=== PATIENT | male | born 1945 | race Caucasian/White ===

== ENCOUNTER 2022-04-01 05:49 | Emergency (ER) | payer OTHER ==
[~2022-04-01] VITALS: Ht 172.7 cm; Wt 88.0 kg
[~2022-04-01 05:49] MED LIST: DOXYCYCLINE HY100 MG PO; FLOMAX0.4 MG; LISINOPRIL20 MG; MACROBID 100 M100 MG PO; MULTI-DAY VITA1 EACH; PREDNISONE20 MG PO; VITAMIN D5000 UNIT
== END 2022-04-01 07:14 | disposition home or self-care (01) ==
LOC: ED 05:49
DX: U07.1 COVID-19 (principal); I10 Essential (primary) hypertension; Z79.899 Other long term (current) drug therapy
CPT/HCPCS: 87502; 99283; U0003

== ENCOUNTER 2024-04-05 04:02 | Emergency (ER) | payer OTHER ==
[~2024-04-05] VITALS: Ht 172.7 cm; Wt 84.1 kg
[2024-04-05] MEDS ORDERED: COZAAR25 MG PO (04:18)
[2024-04-05 04:30] LABS: BASOPHILS 0.3 % (0-2); HEMATOCRIT 42.8 % (35.0-50.0); LYMPHOCYTES 19.2 % (24-44); MCH 28.2 (27-36); MCHC 32.7 g/dl (30-36); MCV 86.2 fl (81-99); MONOCYTES 5.7 % (0-12); NEUTROPHILS 72.8 % (39-80); PLATELET COUNT 146 K/uL (140-440); RBC 4.96 M/ul (4.3-5.7)
[2024-04-05] MEDS ORDERED: LACTATED RINGER'S 1,000 ML IV ONE (04:30)
[2024-04-05 04:40] LABS: PARTIAL THROMBOPLASTIN TIME 27.3 Sec (22.9-41.3)
[2024-04-05 04:41] LABS: INR 1.23 (0.80-1.30); PROTIME 14.8 Sec (11.2-14.2)
[2024-04-05] MEDS ORDERED: ondansetron HCL 4 MG/2 ML VIAL IV ONE (04:45)
[2024-04-05 04:54] LABS: ALBUMIN 3.7 g/dL (3.4-5.0); ALBUMIN/GLOBULIN RATIO 1.23 (1.1-2.4); ANION GAP 14.3 (7-21); BILIRUBIN, TOTAL 0.6 ng/dL (0.2-1.0); BUN/CREATININE RATIO 20.4 (6.0-28.6); CALCIUM 8.3 mg/dL (8.5-10.1); CREATININE, SERUM 0.98 mg/dL (0.70-1.30); POTASSIUM 3.3 mmol/L (3.5-5.1); PROTEIN, TOTAL 6.7 g/dL (6.4-8.2); TSH, 3RD GENERATION 2.817 uIU/mL (0.358-3.740)
[2024-04-05] MEDS ORDERED: POTASSIUM CHLORIDE 10 MEQ TABCR PO ONE (05:45)
[2024-04-05 05:59] LABS: BILIRUBIN, URINE NEGATIVE (negative); BLOOD/HGB, URINE NEGATIVE (Negative); KETONE, URINE NEGATIVE (Negative); LEUK ESTERASE, URINE NEGATIVE (negative); NITRITE, URINE NEGATIVE (negative)
[2024-04-05] MEDS ORDERED: METOPROLOL TARTRATE 50 MG TAB PO ONE (06:00)
[2024-04-05 06:13] LABS: AMPHETAMINES, URINE NEGATIVE (NEGATIVE); BARBITURATES, URINE NEGATIVE (NEGATIVE); BENZODIAZEPINE, URINE NEGATIVE (NEGATIVE); BUPRENORPHINE, URINE NEGATIVE (NEGATIVE); CANNABINOID, URINE NEGATIVE (NEGATIVE); COCAINE, URINE NEGATIVE (NEGATIVE); ECSTASY, URINE NEGATIVE (NEGATIVE); FENTANYL, URINE NEGATIVE (NEGATIVE); METHADONE, URINE NEGATIVE (NEGATIVE); OPIATES, URINE NEGATIVE (NEGATIVE); OXYCODONE, URINE NEGATIVE (NEGATIVE); PHENCYCLIDINE, URINE NEGATIVE (NEGATIVE)
[2024-04-05] MEDS ORDERED: METOPROLOL TART50 MG PO (07:12)
[2024-04-05] MEDS ORDERED: K-TAB ER20 MEQ PO (07:12)
[2024-04-05] MEDS ORDERED: ELIQUIS5 MG PO (07:12)
[2024-04-05] MEDS ORDERED: APIXABAN 5 MG TAB PO ONE (07:15)
[2024-04-05 07:31] VITALS: BP 118/91
--- NOTE | 2024-04-05 14:36 | EKG ---
[facility] [address] [facility] [address] [place], [place] [address] Signed Atrial fibrillation with rapid ventricular response Abnormal ECG No previous ECGs available Confirmed by OLENA TORO MD ([id number]) on 04/05/2024 2:36:25 PM Electronically Signed By: OLENA TORO 04/05/24 1436 PATIENT NAME: KIMBERLY MARQUEZ Electrocardiogram DATE OF : 43 PHYSICIAN: OLENA TORO REPORT #: [id number] REPORT IS CONFIDENTIAL AND NOT TO BE RELEASED WITHOUT AUTHORIZATION
[2024-04-06 19:59] LABS: THYROXINE 6.04 ug/dL (4.50-11.70)
== END 2024-04-05 07:30 | disposition home or self-care (01) ==
LOC: ED 04:02
PROVIDERS: Internal Medicine
DX: I48.91 Unspecified atrial fibrillation (principal); E87.6 Hypokalemia; I10 Essential (primary) hypertension; Z79.899 Other long term (current) drug therapy
CPT/HCPCS: 36415; 70450; 70496; 70498; 71045; 80053; 80307; 81003; 83735; 83880; 84436; 84443; 84484; 85025; 85610; 85730; 93005; 93010; 99285-25; A9270; J2405; J7121; Q9967

== ENCOUNTER 2024-06-27 04:43 | Emergency (ER) | payer OTHER ==
[~2024-06-27] VITALS: Ht 172.7 cm; Wt 81.6 kg
[~2024-06-27 04:43] MED LIST changes: +COZAAR25 MG PO; +ELIQUIS5 MG PO; +K-TAB ER20 MEQ PO; +METOPROLOL TART50 MG PO
[2024-06-27] MEDS ORDERED: MECLIZINE HCL 25 MG TAB PO ONE (05:00)
[2024-06-27] MEDS ORDERED: LACTATED RINGER'S 1,000 ML IV ONE (05:15)
[2024-06-27] MEDS ORDERED: ondansetron HCL 4 MG/2 ML VIAL IV ONE ×2 (05:15→07:15)
[2024-06-27 05:27] LABS: BASOPHILS 0.5 % (0-2); EOSINOPHILS 2.7 % (0-6); HEMATOCRIT 41.7 % (35.0-50.0); HEMOGLOBIN 13.7 g/dL (12.0-18.0); MCH 28.8 (27-36); MCHC 32.8 g/dl (30-36); MCV 87.7 fl (81-99); MONOCYTES 8.4 % (0-12); NEUTROPHILS 65.4 % (39-80); PLATELET COUNT 169 K/uL (140-440); RBC 4.75 M/ul (4.3-5.7); RDW 15.2 (10.5-15.0)
[2024-06-27 05:40] LABS: ALBUMIN 3.6 g/dL (3.4-5.0); ALBUMIN/GLOBULIN RATIO 1.2 (1.1-2.4); ANION GAP 13.9 (7-21); BILIRUBIN, TOTAL 0.5 ng/dL (0.2-1.0); BUN/CREATININE RATIO 17.52 (6.0-28.6); CALCIUM 8.4 mg/dL (8.5-10.1); CREATININE, SERUM 0.97 mg/dL (0.70-1.30); PHOSPHORUS, INORGANIC 3.2 mg/dL (2.5-4.9); POTASSIUM 3.9 mmol/L (3.5-5.1); PROTEIN, TOTAL 6.6 g/dL (6.4-8.2)
[2024-06-27] MEDS ORDERED: MECLIZINE HCL25 MG PO (06:31)
[2024-06-27 07:16] LABS: BILIRUBIN, URINE NEGATIVE (negative); BLOOD/HGB, URINE NEGATIVE (Negative); KETONE, URINE NEGATIVE (Negative); LEUK ESTERASE, URINE NEGATIVE (negative); NITRITE, URINE NEGATIVE (negative)
[2024-06-27 07:42] VITALS: BP 134/115
--- NOTE | 2024-06-27 17:45 | EKG ---
[facility] [address] [facility] [place] [address] Signed Normal sinus rhythm Normal ECG When compared with ECG of 05-APR-2024 04:08, Sinus rhythm has replaced Atrial fibrillation Vent. rate has decreased BY 48 BPM Confirmed by Dae Savage MD ([id number]) on 06/27/2024 5:45:43 PM Electronically Signed By: DAE SAVAGE DO 06/27/24 1745 PATIENT NAME: KIMBERLY MARQUEZ Electrocardiogram DATE OF : 43 PHYSICIAN: DAE SAVAGE DO REPORT #: [id number] REPORT IS CONFIDENTIAL AND NOT TO BE RELEASED WITHOUT AUTHORIZATION
== END 2024-06-27 07:42 | disposition home or self-care (01) ==
LOC: ED 04:43
PROVIDERS: Internal Medicine
DX: H81.11 Benign paroxysmal vertigo, right ear (principal); I48.91 Unspecified atrial fibrillation; I10 Essential (primary) hypertension; N40.1 Benign prostatic hyperplasia with lower urinary tract symptoms; R33.8 Other retention of urine; Z79.01 Long term (current) use of anticoagulants; Z79.899 Other long term (current) drug therapy
CPT/HCPCS: 36415; 70450; 70496; 70498; 80053; 81003; 83735; 84100; 85025; 93005; 93010; 96361; 99284-25; A9270; J2405; J7121; Q9967